=== PATIENT | male | born 1995 | race Caucasian/White ===

== ENCOUNTER 2025-02-26 15:52 | Emergency (ER) | payer OTHER, SELFPAY ==
[2025-02-26 16:13] VITALS: BP 154/89; PULSE 82; RESP 16; TEMP 36.4; O2SAT 99
--- NOTE | 2025-02-26 17:15 | ED_ITS ---
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 He states PD was there and they said they will get in contact with him if he needs rabies vaccine as the owners of the dog state he has had his shots. Patient with laceration to right forearm, bleeding controlled He is not sure when his last Tdap was GENERAL: Well-appearing, well-nourished, and in no acute distress. HEAD: Normocephalic, atraumatic. CHEST: Clear to auscultation. No respiratory distress. HEART: Regular rate and rhythm. NEURO: Alert and oriented x3. Patient screened in triage and initial orders placed. Additional care and disposition to be based upon diagnostic testing and treatment. 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 He stat es PD was there and they said they will get in contact with him if he needs rabies vaccine as the owners of the dog state he has had his shots. Patient with laceration to right forearm, bleeding controlled He is not sure when his last Tdap was GENERAL: Well-appearing, well-nourished, and in no acute distress. HEAD: Normocephalic, atraumatic. CHEST: Clear to auscultation. No respiratory distress. HEART: Regular rate and rhythm. NEURO: Alert and oriented x3. Patient screened in triage and initial orders placed. Additional care and disposition to be based upon diagnostic testing and treatment. <Rosita Dobson PA-C - Last Filed: 02/26/25 19:37> Source: patient <Rosita Dobson PA-C - Last Filed: 02/26/25 19:37> Mode of arrival: ambulatory <NERISSA Domingo Last Filed: 02/26/25 19:37> Limitations: no limitations <NERISSA Domingo Last Filed: 02/26/25 19:37> History of Present Illness HPI narrative: Agree with above HPI. Denies significant pain. <DINO Domingo - Last Filed: 02/26/25 19:37> Related Data Allergies/adverse reactions: Allergies Allergy/AdvReac Type Severity Reaction Status Date / Time No Known Allergies Allergy Verified 02/26/25 15:53 <Deborah Saldana, MEDICAL RECEPTIONIST ASSISTANT - Last Filed: 02/26/25 17:20> Review of Systems Review of Systems: All systems reviewed & are unremarkable except as noted in HPI. <Rosita Dobson PA-C - Last Filed: 02/26/25 19:37> All systems reviewed & are unremarkable except as noted in HPI and below <Rosita Dobson PA-C - Last Filed: 02/26/25 19:37> Exam Narrative: GENERAL: Well appearing, well-nourished, non-toxic, in no acute distress. HEAD: Normocephalic, atraumatic. RESPIRATORY: Airway patent, respirations nonlabored. CARDIOVASCULAR: Regular rate and rhythm. Radial pulses intact MUSCULOSKELETAL: Moves all extremities. No gross deformities. R forearm with 0 .5cm linear laceration to dorsal forearm, no active bleeding. 2 smaller puncture wounds to lateral edge of forearm w/o active bleeding. No obvious fb. Sensation intact. SKIN: Warm, dry, normal color. NEURO: A&O X3. Speech clear. PSYCHIATRIC: Appropriate mood and affect. Normal interaction. <NERISSA Domingo Last Filed: 02/26/25 19:37> Course Vital Signs Vital signs: Vital Signs Temperature 97.5 F L 02/26/25 16:13 Pulse Rate 82 02/26/25 16:13 Respiratory Rate 16 02/26/25 16:13 Blood Pressure 154/89 H 02/26/25 16:13 Pulse Oximetry 99 02/26/25 16:13 Oxygen Delivery Room Air 02/26/25 16:13 Temperature 97.5 F L 02/26/25 16:13 Pulse Rate 79 02/26/25 19:29 Respiratory Rate 20 02/26/25 19:29 Blood Pressure 143/85 H 02/26/25 19:29 Pulse Oximetry 98 02/26/25 19:29 Oxygen Delivery Room Air 02/26/25 16:13 <Deborah Saldana, MEDICAL RECEPTIONIST ASSISTANT - Last Filed: 02/26/25 17:20> Vital Signs Temperature 97.5 F L 02/26/25 16:13 Pulse Rate 82 02/26/25 16:13 Respiratory Rate 16 02/26/25 16:13 Blood Pressure 154/89 H 02/26/25 16:13 Pulse Oximetry 99 02/26/25 16:13 Oxygen Delivery Room Air 02/26/25 16:13 Temperature 97.5 F L 02/26/25 16:13 Pulse Rate 79 02/26/25 19:29 Respiratory Rate 20 02/26/25 19:29 Blood Pressure 143/85 H 02/26/25 19:29 Pulse Oximetry 98 02/26/25 19:29 Oxygen Delivery Room Air 02/26/25 16:13 <Rosita Dobson PA-C - Last Filed: 02/26/25 19:37> Procedures Laceration Laceration 1: Date: 02/26/25 <NERISSA Domingo Last Filed: 02/26/25 19:37> Time: 19:00 <NERISSA Domingo Last Filed: 02/26/25 19:37> Site: upper extremity <NERISSA Domingo Last Filed: 02/26/25 19:37> Side (If applicable): right (forearm) <NERISSA Domingo Last Filed: 02/26/25 19:37> Size (cm): 0.5 <NERISSA Domingo Last Filed: 02/26/25 19:37> Description: linear <NERISSA Domingo Last Filed: 02/26/25 19:37> Depth: simple, single layer <NERISSA Domingo Last Filed: 02/26/25 19:37> Local Anesthetic: lidocaine 1% <NERISSA Domingo Last Filed: 02/26/25 19:37> Amount of anesthesia used (mL): 2 <NERISSA Domingo Last Filed: 02/26/25 19:37> Pre-repair: wound explored, irrigated and irrigated extensively <NERISSA Domingo Last Filed: 02/26/25 19:37> ====== Skin Level ======: Skin layer closed with: nylon <NERISSA Domingo Last Filed: 02/26/25 19:37> Size (cm): 4-0 <NERISSA Domingo Last Filed: 02/26/25 19:37> Number of sutures: 1 <NERISSA Domingo Last Filed: 02/26/25 19:37> Technique: simple, interrupted <NERISSA Domingo Last Filed: 02/26/25 19:37> ====== Subcutaneous Layer ======: ====== Muscle Layer ======: ====== Tendon Layer ======: Medical Decision Making MDM Narrative Medical decision making narrative: Patient presented to ED status post dog bite to right forearm. Reports dog is up-to-date on vaccines, but he is verifying this. Report was filed with his work. Tetanus status was unknown, this was updated in the ED. Patient neurovascularly intact. In no acute distress. Patient with slightly larger/gaping laceration to right forearm. This was thoroughly irrigated and loosely approximated with 1 suture. Patient will be started on Augmentin. Given wound care instructions, strict return precautions. Patient in agreement with plan. D/C in stable condition. <NERISSA Domingo Last Filed: 02/26/25 19:37> Medical Records Medical records reviewed: Yes I reviewed the external patient's medical records. <NERISSA Domingo Last Filed: 02/26/25 19:37> Vital Signs Vital Signs: Vital Signs Temperature 97.5 F L 02/26/25 16:13 Pulse Rate 82 02/26/25 16:13 Respiratory Rate 16 02/26/25 16:13 Blood Pressure 154/89 H 02/26/25 16:13 Pulse Oximetry 99 02/26/25 16:13 Oxygen Delivery Room Air 02/26/25 16:13 Temperature 97.5 F L 02/26/25 16:13 Pulse Rate 79 02/26/25 19:29 Respiratory Rate 20 02/26/25 19:29 Blood Pressure 143/85 H 02/26/25 19:29 Pulse Oximetry 98 02/26/25 19:29 Oxygen Delivery Room Air 02/26/25 16:13 <Deborah Saldana, MEDICAL RECEPTIONIST ASSISTANT - Last Filed: 02/26/25 17:20> Vital Signs Temperature 97.5 F L 02/26/25 16:13 Pulse Rate 82 02/26/25 16:13 Respiratory Rate 16 02/26/25 16:13 Blood Pressure 154/89 H 02/26/25 16:13 Pulse Oximetry 99 02/26/25 16:13 Oxygen Delivery Room Air 02/26/25 16:13 Temperature 97.5 F L 02/26/25 16:13 Pulse Rate 79 02/26/25 19:29 Respiratory Rate 20 02/26/25 19:29 Blood Pressure 143/85 H 02/26/25 19:29 Pulse Oximetry 98 02/26/25 19:29 Oxygen Delivery Room Air 02/26/25 16:13 <Rosita Dobson PA-C - Last Filed: 02/26/25 19:37> Discharge Plan Discharge Clinical Impression: Dog bite, Laceration of right forearm <Deborah Flores February, MEDICAL RECEPTIONIST ASSISTANT - Last Filed: 02/26/25 17:20> Patient Disposition: Home <Deborah Saldana, MEDICAL RECEPTIONIST ASSISTANT - Last Filed: 02/26/25 17:20> Condition: Stable <Deborah Saldana, MEDICAL RECEPTIONIST ASSISTANT - Last Filed: 02/26/25 17:20> Instructions: Antibiotic Form, Animal Bite (ED), Care For Your Stitches (ED) <Deborah Saldana, MEDICAL RECEPTIONIST ASSISTANT - Last Filed: 02/26/25 17:20> Additional Instructions: Take antibiotics as prescribed. Recommend Tylenol and ibuprofen as needed for pain. Return to the ED or visit an urgent care or your PCP for follow-up and wound check/suture removal in 10 to 14 days. Keep the wound dry for 24 hours. You may remove the bandage after 24 hours and wash with simple soap and water, but do not scrub. Return to the ED if you experience uncontrolled bleeding, fever, chills, pus-like drainage, or redness/swelling/warmth surrounding the wound, as these could be signs of an infection. <Deborah Saldana MEDICAL RECEPTIONIST ASSISTANT - Last Filed: 02/26/25 17:20> Patient Language: Slovenian <Deborah Saldana MEDICAL RECEPTIONIST ASSISTANT - Last Filed: 02/26/25 17:20> Prescriptions: New amoxicillin-pot clavulanate 875-125 mg tablet 1 tablet PO Q12H 7 Days Qty: 14 0RF <Deborah Saldana MEDICAL RECEPTIONIST ASSISTANT - Last Filed: 02/26/25 17:20> Follow-up/Referrals: PHYSICIAN NOT ON STAFF,NONSTAFF [Non-Staff] - Ranjan Martinez MD [Physician] - (PRIMARY CARE) <Deborah Saldana APRN - Last Filed: 02/26/25 17:20> Time of Disposition: 19:09 <Deborah Saldana APRN - Last Filed: 02/26/25 17:20> 19:09 <Rosita Dobson PA-C - Last Filed: 02/26/25 19:37>
[2025-02-26] MEDS: TETANUS,DIPHTHERIA,AC PERTUSSIS ADULT (0.5 ML) BOOSTRIX IM (17:45)
--- OUTSIDE RECORDS SUMMARY | 2025-02-26 18:27 | XMS_ITS | Encounter Summary ---
Author Organization [facility] Address [address] [place] [address] Care Team Providers Care Manager Privacy Name Role Phone Unavailable Primary Care Provider Unavailabl e Encounter Details Date Type Department Care Team (Late st Contact Info) Description 08/22/2020 Lab Requisition [facility] - Laboratory [address] [place] [address] Derek Dwyer PA [address] [facility] [address] [place] [address] Social History Tobacco Use Types Packs/Day Years Used Date Smoking Tobacco: Never Assessed Sex and Gender Information Value Date Recorded Sex Assigned at Not on file Legal Sex Male 11:06 AM CDT Gender Identity Not on file Sexual Orientation Not on file COVID-19 Exposure Response Date Recorded In the last month, have you been in contact with someone who was confirmed or suspected to have Coronavirus / COVID-19? No / Unsure 08/22/2020 1:18 PM CONTRACT ASSOCIATE documented as of this encounter Plan of Treatment Not on file documented as of this encounter Procedures Procedure Name Priority Date/Time Associated Diagnosis Comments OCCUPATIONAL PROFILE W/REFLEX DBILI Routine 08/22/2020 10:50 AM CONTRACT ASSOCIATE URINALYSIS W/MICROSCOPIC NO CULTURE Routine 08/22/2020 10:50 AM CONTRACT ASSOCIATE SYPHILIS ANTIBODY CASCADING REFLEX Routine 08/22/2020 10:50 AM CONTRACT ASSOCIATE HIV-1 HIV-2 ANTIBODY + HIV P24 AG PANEL Routine 08/22/2020 10:50 AM CONTRACT ASSOCIATE RPR Routine 08/22/2020 10:50 AM CONTRACT ASSOCIATE CBC W AUTO DIFFERENTIAL Routine 08/22/2020 10:50 AM CONTRACT ASSOCIATE HEPATITIS B CORE ANTIBODY TOTAL Routine 08/22/2020 10:50 AM CONTRACT ASSOCIATE HEPATITIS B SURFACE ANTIGEN W RFLX CONFIRMATION Routine 08/22/2020 10:50 AM CONTRACT ASSOCIATE BILIRUBIN DIRECT Routine 08/22/2020 10:5 0 AM CONTRACT ASSOCIATE HEPATITIS C ANTIBODY Routine 08/22/2020 10:50 AM CONTRACT ASSOCIATE LIPID PROFILE Routine 08/22/2020 10:50 AM CONTRACT ASSOCIATE documented in this encounter Results * (ABNORMAL) BILIRUBIN DIRECT (08/22/2020 10:50 AM CONTRACT ASSOCIATE) Pathologist [facility] Bilirubin Direct 0.8(H) 0.0 - 0.5 mg/dL 08/22/2020 10:21 PM CONTRACT ASSOCIATE [facility] Blood BLOOD SPECIMEN / Unknown Venipuncture / Unknown 08/22/2020 10:50 AM CONTRACT ASSOCIATE 08/22/2020 9:14 PM CONTRACT ASSOCIATE [facility] - CHEMISTRY ORDERABLES F inal Result [facility] [address] * (ABNORMAL) URINALYSIS W/MICROSCOPIC NO CULTURE (08/22/2020 10:50 AM CONTRACT ASSOCIATE) Color UA Straw Straw, Yellow, Light Yellow, Dark Yellow 08/22/2020 9:39 PM CONTRACT ASSOCIATE [facility] Clarity UA Clear Clear 08/22/2020 9:39 PM CONTRACT ASSOCIATE [facility] Specific [place] UA 1.012 1.001 - 1.034 08/22/2020 9:39 PM CONTRACT ASSOCIATE [facility] pH UA 7.0 5.0 - 8.5 pH 08/22/2020 9:39 PM CONTRACT ASSOCIATE [facility] Glucose UA Negative Negative 08/22/2020 9:39 PM CONTRACT ASSOCIATE [facility] Ketone UA Negative Negative 08/22/2020 9:39 PM [facility] Blood UA Negative Negative 08/22/2020 9:39 PM [facility] Bilirubin UA Negative Negative 08/22/2020 9:39 PM [facility] Protein UA Negative Negative 08/22/2020 9:39 PM CONTRACT ASSOCIATE [facility] Leukocyte UA Negative Negative 08/22/2020 9:39 PM [facility] Nitrite UA Negative Negative 08/22/2020 9:39 PM [facility] Urobilinogen UA Negative Negative 0 9:39 PM [facility] RBC UA None None, 0-2 # /hpf 08/22/2020 9:39 PM [facility] WBC UA None None, 0-2 # /hpf 08/22/2020 9:39 PM [facility] Bacteria UA None None, Occasional 08/22/2020 9:39 PM [facility] Squamous Epithelial Cells None None, Occasional #/hpf 08/22/2020 9:39 PM [facility] Mucus UA Present(A) Absent 08/22/2020 9:39 PM [facility] Hyaline Casts None None, 0-1 # /lpf 08/22/2020 9:39 PM [facility] Granular Casts None 0-1, None # /lpf 08/22/2020 9:39 PM [facility] Urine URINE SPECIMEN OBTAINED BY CLEAN CATCH PROCEDURE / Unknown Collection / Unknown 08/22/2020 10:50 AM CONTRACT ASSOCIATE 08/22/2020 9:13 PM CONTRACT ASSOCIATE [facility] - URINALYSIS ORDERABLES Final Result [facility] [address] * HIV-1 HIV-2 ANTIBODY + HIV P24 AG PANEL (08/22/2020 10:50 AM CONTRACT ASSOCIATE) HIV1/2 Ab + P24 Ag Negative Negative 08/22/2020 10:11 PM [facility] Blood BLOOD SPECIMEN / Unknown Venipuncture / Unknown 08/22/2020 10:50 AM CONTRACT ASSOCIATE 08/22/2020 9:14 PM CONTRACT ASSOCIATE [facility] - CHEMISTRY ORDERABLES F inal Result Performing Organization Address City/[facility]/ZIP Co de Phone Number [facility] [address] * HEPATITIS C ANTIBODY (08/22/2020 10:50 AM CONTRACT ASSOCIATE) HCV Antibody Screen Negative Negative 08/22/2020 10:18 PM CONTRACT ASSOCIATE [facility] Hepatitis C Virus Index 0.10 0.00 - 0.99 08/22/2020 10:18 PM CONTRACT ASSOCIATE [facility] Blood BLOOD SPECIMEN / Unknown Venipuncture / Unknown 08/22/2020 10:50 AM CONTRACT ASSOCIATE 08/22/2020 9:14 PM CONTRACT ASSOCIATE [facility] - CHEMISTRY ORDERABLES F inal Result Performing Organization Address [facility] Co de Phone Number [facility] [address] * HEPATITIS B SURFACE ANTIGEN W RFLX CONFIRMATION (08/22/2020 10:50 AM CONTRACT ASSOCIATE) HBsAg Negative Negative 08/22/2020 10:15 PM CONTRACT ASSOCIATE [facility] Blood BLOOD SPECIMEN / Unknown Venipuncture / Unknown 08/22/2020 10:50 AM CONTRACT ASSOCIATE 08/22/2020 9:14 PM CONTRACT ASSOCIATE [facility] - CHEMISTRY ORDERABLES F inal Result Performing Organization Address City/[facility]/ZIP Co de Phone Number [facility] [address] * HEPATITIS B CORE ANTIBODY (08/22/2020 10:50 AM CONTRACT ASSOCIATE) Hepatitis B Core Virus Antibody Total Negative Negative 08/24/2020 8:56 PM CONTRACT ASSOCIATE [facility] ([facility]) Comment: INTERPRETIVE INFORMATION: Hepatitis B Core Ab (Total) This assay should not be used for blood donor screening, associated re-entry protocols, or for screening Human Cells, Tissues and Cellular and Tissue-Based Products (HCT/P). Performed by [employer], [address] [place] [id number] [email or web address], Symone Myers MD, Lab. Director Blood BLOOD SPECIMEN / Unknown Venipuncture / Unknown 08/22/2020 10:50 AM CONTRACT ASSOCIATE 08/22/2020 9:14 PM CONTRACT ASSOCIATE [facility] - CHEMISTRY ORDERABLES F inal Result [facility] ([facility]) [address] * LIPID PROFILE (08/22/2020 10:50 AM [facility]) Appearance Serum Clear Clear 08/22/20 20 10:02 PM [facility] Cholesterol 174 <200 mg/dL 08/22/2020 10:02 PM [facility] Triglycerides 77 <=150 mg/dL 08/22/2020 10:02 PM [facility] Comment:N-acetylcysteine adm inistration may falsely depress Triglyceride results and also affect calculations derived from that parameter. HDL Cholesterol 66 >=40 mg/dL 08/22/2020 10:02 PM [facility] Comment:N-acetylcysteine adm inistration may falsely depress HDL results and also affect calculations derived from that parameter. HDL % 37.9 % 08/22/2020 10:02 PM [facility] Chol HDL Ratio 2.6 08/22/2020 10:02 PM [facility] LDL/HDL Ratio 1.4 08/22/2020 10:02 PM [facility] VLDL Calculated 15 6 - 34 mg/dL 08/22/2020 10:02 PM [facility] LDL Calculated 93 70 - 130 mg/dL 08/22/2020 10:02 PM [facility] Blood BLOOD SPECIMEN / Unknown Venipuncture / Unknown 08/22/2020 10:50 AM CONTRACT ASSOCIATE 08/22/2020 9:14 PM [facility] Narrative [facility] - 08/22/2020 10:02 PM [facility] Lipid Profile Comment: NATIONAL CHOLESTEROL EDUCATION PROGRAM ADULT TREATMENT PANEL III (February 2001) RISK ASSESSMENT CATEGORIES FOR LIPIDS ANALYTE Desirable Above Borderline High Very Level Desirable High Risk Risk High Risk Cholestrol < 200 200-239 >= 240 Triglycerides < 150 150-199 200-499 >= 500 HDL >= 60 < 40 LDL < 100 100-129 130-159 160-189 >= 190 Chol/HDL > 6.0 LDL/HDL > 4.0 Units for all values are mg/dL Note: <70 mg/dL is the therapeutic LDL goal in high risk patients (updated 2004) Other risk factors for coronary heart disease include a family history of early coronary heart disease (CHD), premature menopause w/o estrogen replacement therapy, smoking, hypertension, obesity, diabetes, males over 40 years old, and females over 54 years old. [facility] - CHEMISTRY ORDERABLES F inal Result [facility] [address] * (ABNORMAL) OCCUPATIONAL PROFILE W/REFLEX DBILI (08/22/2020 10:50 AM CONTRACT ASSOCIATE) Protein Total 7.9 6.0 - 8.3 gm/dL 08/22/2020 10:04 PM [facility] Albumin 4.9 3.4 - 5.0 gm/dL 08/22/2020 10:04 PM [facility] Calcium 9.8 8.4 - 10.4 mg/dL 08/22/2020 10:04 PM [facility] Phosphorus 3.0 2.3 - 4.7 mg/dL 08/22/2020 10:04 PM [facility] Glucose 80 65 - 99 mg/dL 08/22/2020 10:04 PM [facility] Bilirubin Total 2.4(H) 0.2 - 1.2 mg/dL 08/22/2020 10:04 PM [facility] Alkaline Phosphatase 60 40 - 150 U/L 08/22/2020 10:04 PM [facility] LDH 209 125 - 220 U/L 08/22/2020 10:04 PM [facility] AST 29 5 - 34 U/L 08/22/2020 10:04 PM [facility] ALT 31 0 - 55 U/L 08/22/2020 10:04 PM [facility] BUN 12 7 - 18 mg/dL 08/22/2020 10:04 PM [facility] Creatinine 0.91 0.72 - 1.25 mg/dL 08/22/2020 10:04 PM [facility] BUN/Creatinine Ratio 13.2 7.0 - 25.0 08/22/2020 10:04 PM [facility] Uric Acid 4.9 3.5 - 7.2 mg/dL 08/22/2020 10:04 PM [facility] Comment:X-fumhnf-6-benzoquin one imine (NAPQI), a metabolite of acetaminophen, at very high levels may lead to falsely low results. D-ujkvdq-E-cysteine at therapeutically achieved concentrations may lead to falsely low results. Sodium 140 136 - 145 mmol/L 08/22/2020 10:04 PM [facility] Potassium 4.6 3.5 - 5.1 mmol/L 08/22/2020 10:04 PM [facility] Chloride 102 98 - 107 mmol/L 08/22/2020 10:04 PM [facility] CO2 25 22 - 29 mmol/L 08/22/2020 10:04 PM [facility] GGT 24 12 - 64 U/L 08/22/2020 10:04 PM [facility] Calcium Adjusted 9.08 8.4 - 10.4 mg/dL 08/22/2020 10:04 PM [facility] eGFR by MDRD >60 >60 mL/min/1. 73m2 08/22/2020 10:04 PM [facility] eGFR by MDRD >60 >60 mL/min/1. 73m2 08/22/2020 10:04 PM [facility] Blood BLOOD SPECIMEN / Unknown Venipuncture / Unknown 08/22/2020 10:50 AM CONTRACT ASSOCIATE 08/22/2020 9:14 PM [facility] Derek [facility] - CHEMISTRY ORDERABLES F inal Result [facility] [address] * (ABNORMAL) CBC WITH DIFFERENTIAL (08/22/2020 10:50 AM [facility]) [facility] WBC 6.8 3.7 - 11.6 x10E9/L 08/22/2020 9:26 PM [facility] RBC 5.53 4.20 - 5.70 x10E12/L 08/22/2020 9:26 PM [facility] Hemoglobin 16.7 13.0 - 17.1 gm/dL 08/22/2020 9:26 PM [facility] Hematocrit 49.4(H) 38.0 - 48.0 % 08/22/2020 9:26 PM [facility] MCV 89.3 80.0 - 96.0 fl 08/22/2020 9:26 PM [facility] MCH 30.2 28.0 - 34.0 pg 08/22/2020 9:26 PM [facility] MCHC 33.8 33.0 - 37.0 gm/dL 08/22/2020 9:26 PM [facility] RDW 12.5 11.3 - 14.8 % 08/22/2020 9:26 PM [facility] Platelet Count 359 150 - 440 x10E9/L 08/22/2020 9:26 PM [facility] MPV 10.8 9.3 - 12.2 fl 08/22/2020 9:26 PM [facility] Neutrophils % 63.4 41.0 - 79.0 % 08/22/2020 9:26 PM [facility] Lymphocytes % 26.7 13.0 - 47.0 % 08/22/2020 9:26 PM [facility] Monocytes % 7.6 0.0 - 10.0 % 08/22/2020 9:26 PM [facility] Eosinophils % 1.3 0.0 - 7.0 % 08/22/2020 9:26 PM [facility] Basophils % 0.6 0.0 - 1.0 % 08/22/2020 9:26 PM [facility] Neutrophil Absolute 4.31 1.8 - 7.7 x10E9/L 08/22/2020 9:26 PM [facility] Lymphocytes Absolute 1.82 1.0 - 4.8 x10E9/L 08/22/2020 9:26 PM [facility] Monocytes Absolute 0.52 0.0 - 0.8 x10E9/L 08/22/2020 9:26 PM [facility] Eosinophils Absolute 0.09 0.0 - 0.5 x10E9/L 08/22/2020 9:26 PM [facility] Basophils Absolute 0.04 0.0 - 0.2 x10E9/L 08/22/2020 9:26 PM [facility] Blood BLOOD SPECIMEN / Unknown Venipuncture / Unknown 08/22/2020 10:50 AM CONTRACT ASSOCIATE 08/22/2020 9:14 PM [facility] Derek [facility] - HEMATOLOGY ORDERABLES Final Result [facility] [address] * RPR (08/22/2020 10:50 AM CONTRACT ASSOCIATE) RPR Nonreactive Nonreactive 08/23/2020 7:12 AM CONTRACT ASSOCIATE [facility] Blood BLOOD SPECIMEN / Unknown Venipuncture / Unknown 08/22/2020 10:50 AM CONTRACT ASSOCIATE 08/22/2020 9:14 PM CONTRACT ASSOCIATE [facility] - CHEMISTRY ORDERABLES F inal Result [facility] [address] documented in this encounter Visit Diagnoses Not on filedocumented in this encounter
--- OUTSIDE RECORDS SUMMARY | 2025-02-26 18:27 | XMS_ITS | Clinical Summary ---
Author Organization [facility] [place] [address] Address [facility] [place] [address] Care Team Providers Care Haulage Engine Operator Name Role Phone Ji Grande NP Primary Care Provider [phone] Allergies No known active allergies Medications famotidine (PEPCID) 20 mg tabletIndications :Abdominal pain Take 1 tablet (20 mg total) by mouth 2 (two) times a day 60 tablet 11 12/22/2021 Active albuterol HFA (PROVENTIL HFA,VENTOLIN HFA,PROAIR HFA) 90 mcg/actuation inhalerIndication s:Mild intermittent asthma without complication Inhale 2 puffs 3 (three) times a day 2 each 1 12/29/2021 Active Active Problems Problem Noted Date Diagnosed Date Seasonal allergic rhinitis due to pollen 022 Assessment & Plan (01/08/2022 10:27 PM CDT): States is using OTC meds for allergy problems States drainage he has had is clear in color and is thin in consistency Voices no other problems. Generalized abdominal pain 12/23/2021 Assessment & Plan (12/23/2021 8:36 PM DELI ASSOCIATE): [place] diet. Eat 6 small meals. Drink green, brown tea, WAYLON AIDE,White soda, room temperature, , wtaer, some Pedilyte for adults. No grease, milk, spice. Etc. Pepcid AC 20mg one daily. Keflex 500mg one tid for 10 days. Gastroesophageal reflux disease without esophagi tis 12/23/2021 Assessment & Plan (12/23/2021 8:53 PM DELI ASSOCIATE): Continue with bland diet No alcohol, or citric foods.,other carbonated be.verages BRAT diet could also be helpful. If not improving Will refer to specialist. Acute gastritis without hemorrhage 12/23/2021 Assessment & Plan (12/23/2021 9:12 PM DELI ASSOCIATE): Continue with the plan of care. Not to continue watch stooling for blood or changes in color , or consistency. Continue with medications and plan of treatment.- Reviewed plan of care with patient states understands. Immunizations Immunization Administration Dates Next Due Influenza, Unspecified 12/29/2021(Deferr ed: Patient Refused),12/22/2021(Deferred: Patient Refused),12/22/2020(Deferred: Patient Refused),08/28/2020(Deferred: Patient Refused) Tdap 04/13/2020 Medical History Medical History Date Comments Hypertension Family History Medical History Relation Name Comments No Known Problems Brother No Known Problems Father Autoimmune disease Mother No Known Problems Sister Relation Name Status Comments Brother Alive Father Alive Mother Alive Sister Alive Social History Tobacco Use Types Packs/Day Years Used Date Smoking Tobacco: Never Smokeless Tobacco: Never PHQ-2 Answer Date Recorded PHQ-2 Total Score (If total score is 3 or more points, staff should administer the PHQ-9) 0 12/29/2021 Personal Safety Answer Date Recorded Getting School Help Needed Not on file 12/14 Sex and Gender Information Value Date Recorded Sex Assigned at Not on file Legal Sex Male 12:54 PM DELI ASSOCIATE Gender Identity Not on file Sexual Orientation Not on file Obstetrics History Last Filed Vital Signs Vital Sign Reading Time Taken Comments Blood Pressure 112/78 12/29/2021 8:37 AM CDT Pulse 88 12/29/2021 8:37 AM CDT Temperature 36.6 C (97.8 F) 12/29/2021 8:37 AM CDT Respiratory Rate 16 12/29/2021 8:37 AM CDT Oxygen Saturation 97% 12/29/2021 8:37 AM CDT Inhaled Oxygen Concentration - - Weight 87.5 kg (192 lb 14.4 oz) 12/29/2021 8:37 AM CDT Height 176 cm (5' 9.29 ) 12/29/2021 8:37 AM CDT Body Mass Index 28.25 12/29/2021 8:37 AM CDT Plan of Treatment Not on file Insurance [employer] [place]F [place] Member Subscriber Plan / Payer (Ef fective 2021-Present) Name:Ti Guardado Relation to Subscriber:Self Name:Ti Guardado Payer ID:[id number] ([facility]) Type:HEALTHCARE/EXCHANGE Address: [place] [id number] Care Teams Haulage Engine Operator Relationship Specialty Start Date End Date Ji Grande NP [address] [facility] [address] [place] [address] PCP - General Nurse Practitioner 12/22/21
--- OUTSIDE RECORDS SUMMARY | 2025-02-26 18:27 | XMS_ITS | Referral Summary ---
Author Organization [facility] [place] [address] Address [facility] [place] [address] Care Team Providers Care Machine Lacer Name Role Phone Ji Grande NP Primary Care Provider [phone] Allergies No known active allergies Medications famotidine [...] 12/23/2021 Assessment & Plan (12/23/2021 8:36 PM VISUAL EFFECTS EDITOR): [place] diet. Eat 6 small meals. Drink green, brown tea, WAYLON AIDE,White soda, room temperature, , wtaer, some Pedilyte for adults. No grease, milk, spice. Etc. Pepcid AC 20mg one daily. Keflex 500mg one tid for 10 days. Gastroesophageal reflux disease without esophagi tis 12/23/2021 Assessment & Plan (12/23/2021 8:53 PM VISUAL EFFECTS EDITOR): Continue with bland diet No alcohol, or citric foods.,other carbonated be.verages BRAT diet could also be helpful. If not improving Will refer to specialist. Acute gastritis without hemorrhage 12/23/2021 Assessment & Plan (12/23/2021 9:12 PM VISUAL EFFECTS EDITOR): Continue with the plan of care. Not to continue watch stooling for blood or changes in color , or consistency. Continue with medications and plan of treatment.- Reviewed plan of care with patient states understands. Immunizations Immunization Administration Dates Next Due Influenza, Unspecified 12/29/2021(Deferr ed: Patient Refused),12/22/2021(Deferred: Patient Refused),12/22/2020(Deferred: Patient Refused),08/28/2020(Deferred: Patient Refused) Tdap 04/13/2020 Social History Tobacco Use Types Packs/Day Years [...] on file Legal Sex Male 12:54 PM VISUAL EFFECTS EDITOR Gender Identity Not on file Sexual Orientation Not on file Last Filed Vital Signs Vital Sign Reading [...] file Insurance [place] Care Teams Machine Lacer Relationship Specialty Start Date End Date Ji Grande NP [facility] [address] [place] [address] PCP - General Nurse Practitioner 12/22/21
--- OUTSIDE RECORDS SUMMARY | 2025-02-26 18:27 | XMS_ITS | Continuity of Care Document ---
Author Organization [facility] Address [address] [place] [address] Phone Care Team Providers Care Fire Fighter [employer] Name Role Phone CONV, [facility] Unavailable Unavailable Advance Directives Directive Yes / No Effective Date File Name No Information Encounters Encounter Description Practice Location Reason(s) For Visit Diagnoses Date Provider Providers Copied on Encounter [facility], [address] [place] [address], [facility], tel:[phone] Z [facility] CONV No Information CONV [facility]. [address] [place] [address], [facility], . Family History Family Member Type Diagnosis Age At Onset No Information Immunizations Vaccine Date Status Comments ORAL POLIO administered Source: New Imm unization Record DPT/HIB COMBINATION administered Source: New Immunization Record ORAL POLIO administered Source: New Imm unization Record DPT/HIB COMBINATION administered Source: New Immunization Record HEP B VACCINE PED/ADOL administered Sourc e: New Immunization Record HEP B VACCINE PED/ADOL administered Sourc e: New Immunization Record Payers Payer name Insurance type Covered republican ID Authoriza tion(s) No Information Social History Type Description Quantity Date Captured Comments Sex Male Smoking Status No Information Chief Complaint And Reason For Visit No Information History Of Present Illness Encounter Date Complaint History Of Prese nt Illness No Information Instructions Date Instruction Additional Infor mation No Information Assessments Type Assessment Date No Information Patient Care Teams Name Effective Dates (start - stop) Status Members No Information
--- OUTSIDE RECORDS SUMMARY | 2025-02-26 18:27 | XMS_ITS | Clinical Summary ---
Author Organization [facility] Address [address] [place] [address] Care Team Providers Care Claims Adjuster Crop Name Role Phone Unavailable Primary Care Provider Unavailabl e Source Comments [facility],non-owned Affiliates and Associated Physician Practices is amultiple site organization consisting of ambulatory clinics and hospital sitesin [place], [place]. This disclosure is being madepursuant to the Care Everywhere program and may not contain all information available regarding this patient. Last updated 18.[facility] [employer] Social History Tobacco Use Types Packs/Day Years Used Date Smoking Tobacco: Never Assessed Sex and Gender Information Value Date Recorded Sex Assigned at Not on file Legal Sex Male 11:06 AM CDT Gender Identity Not on file Sexual Orientation Not on file Plan of Treatment Health Maintenance Due Date Last Done Comments DTAP/TDAP/TD VACCINES (1 - Tdap) 2013 HEPATITIS B VACCINE (1 of 3 - 19+ 3-dose series) 2013 COVID-19 VACCINE ( - 2023-2 5 season) 2024 DEPRESSION SCREENING 10/14/2024 INFLUENZA VACCINE (Season Ended) 2025 ZOSTER VACCINE (1 of 2) 2044 HEPATITIS C SCREENING Completed 08/22/2020 HIV SCREENING Completed 08/22/2020 HIB VACCINE Aged Out No longer eligi ble based on patient's age to complete this topic HPV VACCINE Aged Out No longer eligi ble based on patient's age to complete this topic MENINGOCOCCAL (Group B) VACC INE SHARED DECISION-MAKING Aged Out No longer eligibl e based on patient's age to complete this topic MENINGOCOCCAL GROUPS A/C/Y/W VACCINE Aged Out No longer eligible b ased on patient's age to complete this topic PNEUMOCOCCAL VACCINE Aged Out No long er eligible based on patient's age to complete this topic Procedures Procedure Name Priority Date/Time Associated Diagnosis Comments HEPATITIS C ANTIBODY Routine 08/22/2020 10:50 AM TIRE LAYER HIV-1 HIV-2 ANTIBODY + HIV P24 AG PANEL Routine 08/22/2020 10:50 AM TIRE LAYER from Last 3 Months or Most Recently Relevant to Health Maintenance Results * HIV-1 HIV-2 ANTIBODY + HIV P24 AG PANEL (08/22/2020 10:50 AM TIRE LAYER) HIV1/2 Ab + P24 Ag Negative Negative 08/22/2020 10:11 PM TIRE LAYER [facility] Blood BLOOD SPECIMEN / Unknown Venipuncture / Unknown 08/22/2020 10:50 AM TIRE LAYER 08/22/2020 9:14 PM TIRE LAYER [facility] - CHEMISTRY ORDERABLES F inal Result [facility] [address] * HEPATITIS C ANTIBODY (08/22/2020 10:50 AM TIRE LAYER) HCV Antibody Screen Negative Negative 08/22/2020 10:18 PM TIRE LAYER [facility] Hepatitis C Virus Index 0.10 0.00 - 0.99 08/22/2020 10:18 PM TIRE LAYER [facility] Blood BLOOD SPECIMEN / Unknown Venipuncture / Unknown 08/22/2020 10:50 AM TIRE LAYER 08/22/2020 9:14 PM TIRE LAYER [facility] - CHEMISTRY ORDERABLES F inal Result [facility] [address] from Last 3 Months or Most Recently Relevant to Health Maintenance
--- OUTSIDE RECORDS SUMMARY | 2025-02-26 18:27 | XMS_ITS | Clinical Summary ---
Author Organization [facility] [employer] [place] Address [address] [place] [address] Care Team Providers Care Special Education Instructor Name Role Phone Unavailable Primary Care Provider Unavailabl e Allergies No known active allergies Medications albuterol HFA 90 mcg inhalerIndication s:Mild intermittent reactive airway disease without complication Take 2 Puffs by inhalation every 6 hours as needed for Shortness of Breath. 18 Gram 1 0 Active Active Problems No known active problems Immunizations Immunization Administration Dates Next Due (ADACEL/BOOSTRIX)(10 YR UP) TDAP VACCINE, 0.5ML, IM 04/13/2020 Family History Medical History Relation Name Comments No Known Problems Brother No Known Problems Father Brain Cancer Maternal Grandfather No Known Problems Maternal Grandmother No Known Problems Mother Other Paternal Grandfather Other Paternal Grandmother No Known Problems Sister Relation Name Status Comments Brother Alive Father Alive Maternal Grandfather Maternal Grandmother Alive Mother Alive Paternal Grandfather Other Paternal Grandmother Other Sister Alive Social History Tobacco Use Types Packs/Day Years Used Date Smoking Tobacco: Never Smokeless Tobacco: Never Alcohol Use Standard Drinks/Week Comments Yes 0 (1 standard drink = 0.6 oz pur e alcohol) Sex and Gender Information Value Date Recorded Sex Assigned at Not on file Legal Sex Male 8:38 AM CDT Gender Identity Not on file Sexual Orientation Not on file Last Filed Vital Signs Vital Sign Reading Time Taken Comments Blood Pressure 124/72 04/13/2020 7:45 AM CDT Pulse 92 04/13/2020 7:45 AM CDT Temperature 36.3 C (97.3 F) 04/13/2020 7:45 AM CDT Respiratory Rate 18 04/13/2020 7:45 AM CDT Oxygen Saturation 98% 04/13/2020 7:45 AM CDT Inhaled Oxygen Concentration - - Weight 77.1 kg (170 lb) 04/13/2020 7:45 AM CDT Height 175.3 cm (5' 9 ) 04/13/2020 7:45 AM CDT Body Mass Index 25.1 04/13/2020 7:45 AM CDT Plan of Treatment Health Maintenance Due Date Last Done Comments HEPATITIS B VACCINES (1 of 3 - 19+ 3-dose series) 2013 INFLUENZA VACCINE (#1) 2024 DTAP/TDAP/TD VACCINES (2 - T d or Tdap) 04/13/2030 04/13/2020 HPV VACCINES Aged Out No longer eligi ble based on patient's age to complete this topic
[2025-02-26] MEDS: LIDOCAINE 1% LOCAL INJ 20 ML VIAL 5 ML INFILTRATE (18:41)
[2025-02-26] MEDS: AMOXICILLIN/CLAVULANATE K 875-125 MG TAB 1 TABLET PO (18:42)
[2025-02-26 19:29] VITALS: BP 143/85; PULSE 79; RESP 20; O2SAT 98
== END 2025-02-26 19:31 | disposition home or self-care (01) ==
PROVIDERS: Emergency Provider Physician Assistant
DX: S51.811A Laceration without foreign body of right forearm, initial encounter (principal); Z23 Encounter for immunization; W54.0XXA Bitten by dog, initial encounter
CPT/HCPCS: 12001; 90471; 90715; 99283; A9270; J2003

== ENCOUNTER 2025-03-05 16:04 | Emergency (ER) | payer OTHER, SELFPAY ==
[2025-03-05 16:06] VITALS: BP 138/89; PULSE 83; RESP 20; TEMP 36.6; O2SAT 100
--- OUTSIDE RECORDS SUMMARY | 2025-03-05 16:06 | XMS_ITS | Referral Summary ---
Author Organization [facility] [address] Address [facility] [place] [address] Care Team Providers Care Sports Lawyer Name Role Phone Ji Grande NP Primary Care Provider [phone] Allergies No known active allergies Medications famotidine [...] 12/23/2021 Assessment & Plan (12/23/2021 8:36 PM GILL BOX TENDER): [place] diet. Eat 6 small meals. Drink green, brown tea, WAYLON AIDE,White soda, room temperature, , wtaer, some Pedilyte for adults. No grease, milk, spice. Etc. Pepcid AC 20mg one daily. Keflex 500mg one tid for 10 days. Gastroesophageal reflux disease without esophagi tis 12/23/2021 Assessment & Plan (12/23/2021 8:53 PM GILL BOX TENDER): Continue with bland diet No alcohol, or citric foods.,other carbonated be.verages BRAT diet could also be helpful. If not improving Will refer to specialist. Acute gastritis without hemorrhage 12/23/2021 Assessment & Plan (12/23/2021 9:12 PM GILL BOX TENDER): Continue with the plan of care. Not [...] on file Legal Sex Male 12:54 PM GILL BOX TENDER Gender Identity Not on file Sexual Orientation [...] 8:37 AM CDT Height 176 cm (5' 9.29) 12/29/2021 8:37 AM CDT Body Mass Index 28.25 12/29/2021 8:37 AM CDT Plan of Treatment Not on file Insurance [employer] [place]F PPO [place] Care Teams Sports Lawyer Relationship Specialty Start Date End Date Ji Grande NP [facility] [facility] [address] [place] [address] PCP - General Nurse Practitioner 12/22/21
--- OUTSIDE RECORDS SUMMARY | 2025-03-05 16:06 | XMS_ITS | Encounter Summary ---
Author Organization [facility] Address [address] [place] [address] Care Team Providers Care Clinical Supervisor Name Role Phone Unavailable Primary Care Provider Unavailabl e Encounter Details Date Type Department Care Team (Late st Contact Info) Description 08/22/2020 Lab Requisition [facility] - Laboratory [address] [place] [address] Derek Dwyer PA [address] [facility] [address] [place] [address] Social History Tobacco Use Types Packs/Day Years [...] COVID-19? No / Unsure 08/22/2020 1:18 PM BAKERY ASSISTANT documented as of this encounter Plan of Treatment Not on file documented as of this encounter Procedures Procedure Name Priority Date/Time Associated Diagnosis Comments OCCUPATIONAL PROFILE W/REFLEX DBILI Routine 08/22/2020 10:50 AM BAKERY ASSISTANT URINALYSIS W/MICROSCOPIC NO CULTURE Routine 08/22/2020 10:50 AM BAKERY ASSISTANT SYPHILIS ANTIBODY CASCADING REFLEX Routine 08/22/2020 10:50 AM BAKERY ASSISTANT HIV-1 HIV-2 ANTIBODY + HIV P24 AG PANEL Routine 08/22/2020 10:50 AM BAKERY ASSISTANT RPR Routine 08/22/2020 10:50 AM BAKERY ASSISTANT CBC W AUTO DIFFERENTIAL Routine 08/22/2020 10:50 AM BAKERY ASSISTANT HEPATITIS B CORE ANTIBODY TOTAL Routine 08/22/2020 10:50 AM BAKERY ASSISTANT HEPATITIS B SURFACE ANTIGEN W RFLX CONFIRMATION Routine 08/22/2020 10:50 AM BAKERY ASSISTANT BILIRUBIN DIRECT Routine 08/22/2020 10:5 0 AM BAKERY ASSISTANT HEPATITIS C ANTIBODY Routine 08/22/2020 10:50 AM BAKERY ASSISTANT LIPID PROFILE Routine 08/22/2020 10:50 AM BAKERY ASSISTANT documented in this encounter Results * (ABNORMAL) BILIRUBIN DIRECT (08/22/2020 10:50 AM BAKERY ASSISTANT) Pathologist [facility] Bilirubin Direct 0.8(H) 0.0 - 0.5 mg/dL 08/22/2020 10:21 PM BAKERY ASSISTANT [facility] Blood BLOOD SPECIMEN / Unknown Venipuncture / Unknown 08/22/2020 10:50 AM BAKERY ASSISTANT 08/22/2020 9:14 PM BAKERY ASSISTANT [facility] - CHEMISTRY ORDERABLES F inal Result [facility] [address] * (ABNORMAL) URINALYSIS W/MICROSCOPIC NO CULTURE (08/22/2020 10:50 AM BAKERY ASSISTANT) Color UA Straw Straw, Yellow, Light Yellow, Dark Yellow 08/22/2020 9:39 PM BAKERY ASSISTANT [facility] Clarity UA Clear Clear 08/22/2020 9:39 PM BAKERY ASSISTANT [facility] Specific Millsap UA 1.012 1.001 - 1.034 08/22/2020 9:39 PM BAKERY ASSISTANT [facility] pH UA 7.0 5.0 - 8.5 pH 08/22/2020 9:39 PM BAKERY ASSISTANT [facility] Glucose UA Negative Negative 08/22/2020 9:39 PM BAKERY ASSISTANT [facility] Ketone UA Negative Negative 08/22/2020 9:39 PM [facility] Blood UA Negative Negative 08/22/2020 9:39 PM [facility] Bilirubin UA Negative Negative 08/22/2020 9:39 PM [facility] Protein UA Negative Negative 08/22/2020 9:39 PM BAKERY ASSISTANT [facility] Leukocyte UA Negative Negative 08/22/2020 9:39 PM [facility] Nitrite UA Negative Negative 08/22/2020 9:39 PM [facility] Urobilinogen UA Negative Negative 0 9:39 PM [facility] RBC UA None None, 0-2 # /hpf 08/22/2020 9:39 PM [facility] WBC UA None None, 0-2 # /hpf 08/22/2020 9:39 PM [facility] Bacteria UA None None, Occasional 08/22/2020 9:39 PM [facility] Squamous Epithelial Cells None None, Occasional #/hpf 08/22/2020 9:39 PM [facility] Mucus UA Present(A) Absent 08/22/2020 9:39 PM [facility] Hyaline Casts None None, 0-1 # /lpf 08/22/2020 9:39 PM [facility] Granular Casts None 0-1, None # /lpf 08/22/2020 9:39 PM [facility] Urine URINE SPECIMEN OBTAINED BY CLEAN CATCH PROCEDURE / Unknown Collection / Unknown 08/22/2020 10:50 AM BAKERY ASSISTANT 08/22/2020 9:13 PM BAKERY ASSISTANT [facility] - URINALYSIS ORDERABLES Final Result [facility] [address] * HIV-1 HIV-2 ANTIBODY + HIV P24 AG PANEL (08/22/2020 10:50 AM BAKERY ASSISTANT) HIV1/2 Ab + P24 Ag Negative Negative 08/22/2020 10:11 PM [facility] Blood BLOOD SPECIMEN / Unknown Venipuncture / Unknown 08/22/2020 10:50 AM BAKERY ASSISTANT 08/22/2020 9:14 PM BAKERY ASSISTANT [facility] - CHEMISTRY ORDERABLES F inal Result Performing Organization Address City/[facility]/ZIP Co de Phone Number [facility] [address] * HEPATITIS C ANTIBODY (08/22/2020 10:50 AM BAKERY ASSISTANT) HCV Antibody Screen Negative Negative 08/22/2020 10:18 PM BAKERY ASSISTANT [facility] Hepatitis C Virus Index 0.10 0.00 - 0.99 08/22/2020 10:18 PM BAKERY ASSISTANT [facility] Blood BLOOD SPECIMEN / Unknown Venipuncture / Unknown 08/22/2020 10:50 AM BAKERY ASSISTANT 08/22/2020 9:14 PM BAKERY ASSISTANT [facility] - CHEMISTRY ORDERABLES F inal Result Performing Organization Address [facility] Co de Phone Number [facility] [address] * HEPATITIS B SURFACE ANTIGEN W RFLX CONFIRMATION (08/22/2020 10:50 AM BAKERY ASSISTANT) HBsAg Negative Negative 08/22/2020 10:15 PM BAKERY ASSISTANT [facility] Blood BLOOD SPECIMEN / Unknown Venipuncture / Unknown 08/22/2020 10:50 AM BAKERY ASSISTANT 08/22/2020 9:14 PM BAKERY ASSISTANT [facility] - CHEMISTRY ORDERABLES F inal Result Performing Organization Address City/[facility]/ZIP Co de Phone Number [facility] [address] * HEPATITIS B CORE ANTIBODY (08/22/2020 10:50 AM BAKERY ASSISTANT) Hepatitis B Core Virus Antibody Total Negative Negative 08/24/2020 8:56 PM BAKERY ASSISTANT [facility] ([facility]) Comment: INTERPRETIVE INFORMATION: Hepatitis B Core Ab (Total) This assay should not be used for blood donor screening, associated re-entry protocols, or for screening Human Cells, Tissues and Cellular and Tissue-Based Products (HCT/P). Performed by [employer], [address] [place] [id number] [email or web address], Symone Myers MD, Lab. Director Blood BLOOD SPECIMEN / Unknown Venipuncture / Unknown 08/22/2020 10:50 AM BAKERY ASSISTANT 08/22/2020 9:14 PM BAKERY ASSISTANT [facility] - CHEMISTRY ORDERABLES F inal Result [facility] ([facility]) [address] * LIPID PROFILE (08/22/2020 10:50 AM [facility]) Appearance Serum Clear Clear 08/22/20 20 10:02 PM [facility] Cholesterol 174 <200 mg/dL 08/22/2020 10:02 PM [facility] Triglycerides 77 <=150 mg/dL 08/22/2020 10:02 PM [facility] Comment:N-acetylcysteine adm inistration may falsely depress Triglyceride results and also affect calculations derived from that parameter. HDL Cholesterol 66 >=40 mg/dL 08/22/2020 10:02 PM [facility] Comment:N-acetylcysteine adm inistration may falsely depress HDL results and also affect calculations derived from that parameter. HDL % 37.9 % 08/22/2020 10:02 PM [facility] Chol HDL Ratio 2.6 08/22/2020 10:02 PM [facility] LDL/HDL Ratio 1.4 08/22/2020 10:02 PM [facility] VLDL Calculated 15 6 - 34 mg/dL 08/22/2020 10:02 PM [facility] LDL Calculated 93 70 - 130 mg/dL 08/22/2020 10:02 PM [facility] Blood BLOOD SPECIMEN / Unknown Venipuncture / Unknown 08/22/2020 10:50 AM BAKERY ASSISTANT 08/22/2020 9:14 PM [facility] Narrative [facility] - 08/22/2020 10:02 PM [facility] Lipid Profile Comment: NATIONAL CHOLESTEROL EDUCATION PROGRAM [...] LAB - CHEMISTRY ORDERABLES F inal Result [facility] [address] * (ABNORMAL) OCCUPATIONAL PROFILE W/REFLEX DBILI (08/22/2020 10:50 AM BAKERY ASSISTANT) Protein Total 7.9 6.0 - 8.3 gm/dL 08/22/2020 10:04 PM [facility] Albumin 4.9 3.4 - 5.0 gm/dL 08/22/2020 10:04 PM [facility] Calcium 9.8 8.4 - 10.4 mg/dL 08/22/2020 10:04 PM [facility] Phosphorus 3.0 2.3 - 4.7 mg/dL 08/22/2020 10:04 PM [facility] Glucose 80 65 - 99 mg/dL 08/22/2020 10:04 PM [facility] Bilirubin Total 2.4(H) 0.2 - 1.2 mg/dL 08/22/2020 10:04 PM [facility] Alkaline Phosphatase 60 40 - 150 U/L 08/22/2020 10:04 PM [facility] LDH 209 125 - 220 U/L 08/22/2020 10:04 PM [facility] AST 29 5 - 34 U/L 08/22/2020 10:04 PM [facility] ALT 31 0 - 55 U/L 08/22/2020 10:04 PM [facility] BUN 12 7 - 18 mg/dL 08/22/2020 10:04 PM [facility] Creatinine 0.91 0.72 - 1.25 mg/dL 08/22/2020 10:04 PM [facility] BUN/Creatinine Ratio 13.2 7.0 - 25.0 08/22/2020 10:04 PM [facility] Uric Acid 4.9 3.5 - 7.2 mg/dL 08/22/2020 10:04 PM [facility] Comment:A-astmfr-4-benzoquin one imine (NAPQI), a metabolite of acetaminophen, at very high levels may lead to falsely low results. L-getmwp-B-cysteine at therapeutically achieved concentrations may lead to falsely low results. Sodium 140 136 - 145 mmol/L 08/22/2020 10:04 PM [facility] Potassium 4.6 3.5 - 5.1 mmol/L 08/22/2020 10:04 PM [facility] Chloride 102 98 - 107 mmol/L 08/22/2020 10:04 PM [facility] CO2 25 22 - 29 mmol/L 08/22/2020 10:04 PM [facility] GGT 24 12 - 64 U/L 08/22/2020 10:04 PM [facility] Calcium Adjusted 9.08 8.4 - 10.4 mg/dL 08/22/2020 10:04 PM [facility] eGFR by MDRD >60 >60 mL/min/1. 73m2 08/22/2020 10:04 PM [facility] eGFR by MDRD >60 >60 mL/min/1. 73m2 08/22/2020 10:04 PM [facility] Blood BLOOD SPECIMEN / Unknown Venipuncture / Unknown 08/22/2020 10:50 AM BAKERY ASSISTANT 08/22/2020 9:14 PM [facility] Derek [facility] - CHEMISTRY ORDERABLES F inal Result [facility] [address] * (ABNORMAL) CBC WITH DIFFERENTIAL (08/22/2020 10:50 AM [facility]) [facility] WBC 6.8 3.7 - 11.6 x10E9/L 08/22/2020 9:26 PM [facility] RBC 5.53 4.20 - 5.70 x10E12/L 08/22/2020 9:26 PM [facility] Hemoglobin 16.7 13.0 - 17.1 gm/dL 08/22/2020 9:26 PM [facility] Hematocrit 49.4(H) 38.0 - 48.0 % 08/22/2020 9:26 PM [facility] MCV 89.3 80.0 - 96.0 fl 08/22/2020 9:26 PM [facility] MCH 30.2 28.0 - 34.0 pg 08/22/2020 9:26 PM [facility] MCHC 33.8 33.0 - 37.0 gm/dL 08/22/2020 9:26 PM [facility] RDW 12.5 11.3 - 14.8 % 08/22/2020 9:26 PM [facility] Platelet Count 359 150 - 440 x10E9/L 08/22/2020 9:26 PM [facility] MPV 10.8 9.3 - 12.2 fl 08/22/2020 9:26 PM [facility] Neutrophils % 63.4 41.0 - 79.0 % 08/22/2020 9:26 PM [facility] Lymphocytes % 26.7 13.0 - 47.0 % 08/22/2020 9:26 PM [facility] Monocytes % 7.6 0.0 - 10.0 % 08/22/2020 9:26 PM [facility] Eosinophils % 1.3 0.0 - 7.0 % 08/22/2020 9:26 PM [facility] Basophils % 0.6 0.0 - 1.0 % 08/22/2020 9:26 PM [facility] Neutrophil Absolute 4.31 1.8 - 7.7 x10E9/L 08/22/2020 9:26 PM [facility] Lymphocytes Absolute 1.82 1.0 - 4.8 x10E9/L 08/22/2020 9:26 PM [facility] Monocytes Absolute 0.52 0.0 - 0.8 x10E9/L 08/22/2020 9:26 PM [facility] Eosinophils Absolute 0.09 0.0 - 0.5 x10E9/L 08/22/2020 9:26 PM [facility] Basophils Absolute 0.04 0.0 - 0.2 x10E9/L 08/22/2020 9:26 PM [facility] Blood BLOOD SPECIMEN / Unknown Venipuncture / Unknown 08/22/2020 10:50 AM BAKERY ASSISTANT 08/22/2020 9:14 PM [facility] Dreek [facility] - HEMATOLOGY ORDERABLES Final Result [facility] [address] * RPR (08/22/2020 10:50 AM BAKERY ASSISTANT) RPR Nonreactive Nonreactive 08/23/2020 7:12 AM BAKERY ASSISTANT [facility] Blood BLOOD SPECIMEN / Unknown Venipuncture / Unknown 08/22/2020 10:50 AM BAKERY ASSISTANT 08/22/2020 9:14 PM BAKERY ASSISTANT Derek [facility] - CHEMISTRY ORDERABLES F inal Result [facility] [address] documented in this encounter Visit Diagnoses Not on filedocumented in this encounter
--- OUTSIDE RECORDS SUMMARY | 2025-03-05 16:06 | XMS_ITS | Clinical Summary ---
Author Organization [facility] [address] Address [facility] [place] [address] Care Team Providers Care Cork Floor Installer Name Role Phone Ji Grande NP Primary Care Provider [phone] Allergies No known active allergies Medications famotidine [...] 12/23/2021 Assessment & Plan (12/23/2021 8:36 PM ORNAMENTER HAND): Eaton diet. Eat 6 small meals. Drink green, brown tea, WAYLON AIDE,White soda, room temperature, , wtaer, some Pedilyte for adults. No grease, milk, spice. Etc. Pepcid AC 20mg one daily. Keflex 500mg one tid for 10 days. Gastroesophageal reflux disease without esophagi tis 12/23/2021 Assessment & Plan (12/23/2021 8:53 PM ORNAMENTER HAND): Continue with bland diet No alcohol, or citric foods.,other carbonated be.verages BRAT diet could also be helpful. If not improving Will refer to specialist. Acute gastritis without hemorrhage 12/23/2021 Assessment & Plan (12/23/2021 9:12 PM ORNAMENTER HAND): Continue with the plan of care. Not [...] on file Legal Sex Male 12:54 PM ORNAMENTER HAND Gender Identity Not on file Sexual Orientation [...] Relation to Subscriber:Self Name:Ti Guardado Payer ID:[id number] ([facility]) Type:HEALTHCARE/EXCHANGE Address: [place] [phone] Care Teams Cork Floor Installer Relationship Specialty Start Date End Date Ji Grande NP [address] [facility] [address] [place] [address] PCP - General Nurse Practitioner 12/22/21
--- OUTSIDE RECORDS SUMMARY | 2025-03-05 16:06 | XMS_ITS | Clinical Summary ---
Author Organization [facility] Address [address] [place] [address] Care Team Providers Care Marketing Assistant Name Role Phone Unavailable Primary Care Provider [...] 7:45 AM CDT Height 175.3 cm (5' 9) 04/13/2020 7:45 AM CDT Body Mass Index [...]
--- OUTSIDE RECORDS SUMMARY | 2025-03-05 16:06 | XMS_ITS | Continuity of Care Document ---
Author Organization [facility] Address [address] [place] [address] Phone Care Team Providers Care Hris Analyst Name Role Phone CONV, [facility] Unavailable Unavailable Advance Directives Directive Yes / No Effective Date File Name No Information Encounters Encounter Description Practice Location Reason(s) For Visit Diagnoses Date Provider Providers Copied on Encounter [facility] /[facility], [address] [place] [address], [facility], tel:[phone] Z [facility] CONV No Information CONV [facility]. [address] [place] [address], [facility], . Family History Family Member Type Diagnosis [...] Record Payers Payer name Insurance type Covered libertarian ID Authoriza tion(s) No Information Social History [...]
--- OUTSIDE RECORDS SUMMARY | 2025-03-05 16:06 | XMS_ITS | Clinical Summary ---
Author Organization [facility] Address [address] [place] [address] Care Team Providers Care Mammography Tech Name Role Phone Unavailable Primary Care Provider Unavailabl e Source Comments [facility],non-owned Affiliates and Associated Physician Practices is amultiple site organization consisting of ambulatory clinics and hospital sitesin [place], [place], [place] and [place]. This disclosure is being madepursuant to the Care Everywhere program and may not contain all information available regarding this patient. Last updated 18.[facility] [employer] Social History Tobacco Use Types Packs/Day Years [...] HEPATITIS C ANTIBODY Routine 08/22/2020 10:50 AM CIRCUS LABORER HIV-1 HIV-2 ANTIBODY + HIV P24 AG PANEL Routine 08/22/2020 10:50 AM CIRCUS LABORER from Last 3 Months or Most Recently Relevant to Health Maintenance Results * HIV-1 HIV-2 ANTIBODY + HIV P24 AG PANEL (08/22/2020 10:50 AM CIRCUS LABORER) HIV1/2 Ab + P24 Ag Negative Negative 08/22/2020 10:11 PM CIRCUS LABORER [facility] Blood BLOOD SPECIMEN / Unknown Venipuncture / Unknown 08/22/2020 10:50 AM CIRCUS LABORER 08/22/2020 9:14 PM CIRCUS LABORER Derek [facility] - CHEMISTRY ORDERABLES F inal Result [facility] [address] * HEPATITIS C ANTIBODY (08/22/2020 10:50 AM CIRCUS LABORER) HCV Antibody Screen Negative Negative 08/22/2020 10:18 PM CIRCUS LABORER [facility] Hepatitis C Virus Index 0.10 0.00 - 0.99 08/22/2020 10:18 PM CIRCUS LABORER [facility] Blood BLOOD SPECIMEN / Unknown Venipuncture / Unknown 08/22/2020 10:50 AM CIRCUS LABORER 08/22/2020 9:14 PM CIRCUS LABORER Derek [facility] - CHEMISTRY ORDERABLES F inal Result [facility] [address] from Last 3 Months or Most Recently Relevant to Health Maintenance
--- NOTE | 2025-03-05 17:16 | ED_ITS ---
HPI - Skin/Abscess/Foreign Bdy General Chief complaint: Skin/Abscess/Foreign Body Stated complaint: suture removal neded History of Present Illness HPI narrative: Patient is a 29-year-old male who presents to the ER for suture removal. He reports he had 1 stitch placed in his right forearm 1 week ago. Patient denies any purulence drainage, recent fevers, decreased range of motion in his wrist or elbow, or swelling at the site. He denies any pain at the time of examination. Related Data Allergies Allergy/AdvReac Type Severity Reaction Status Date / Time No Known Allergies Allergy Verified 02/26/25 15:53 Review of Systems Review of Systems: All systems reviewed & are unremarkable except as noted in HPI and below Exam Narrative: GENERAL: Well appearing, well-nourished, non-toxic, in no acute distress. RESPIRATORY: Airway patent, respirations nonlabored. MUSCULOSKELETAL: Moves all extremities. Strength/ROM intact without gross deformities. SKIN: Warm, dry, normal color. No rashes. Healed laceration on pt's R forearm with one visible stitch. NEURO: A&O X3. Speech clear. Course Vital Signs Vital signs: Vital Signs Temperature 36.6 C 03/05/25 16:06 Pulse Rate 83 03/05/25 16:06 Respiratory Rate 20 03/05/25 16:06 Blood Pressure 138/89 03/05/25 16:06 Pulse Oximetry 100 03/05/25 16:06 Oxygen Delivery Room Air 03/05/25 16:06 Temperature 36.6 C 03/05/25 16:06 Pulse Rate 83 03/05/25 16:06 Respiratory Rate 20 03/05/25 16:06 Blood Pressure 138/89 03/05/25 16:06 Pulse Oximetry 100 03/05/25 16:06 Oxygen Delivery Room Air 03/05/25 16:06 MDM - Skin/Abscess/Foreign Bdy MDM Narrative Medical decision making narrative: Patient is a 29-year-old male who presents to the ER for suture removal. He reports he had 1 stitch placed in his right forearm 1 week ago. Patient denies any purulence drainage, recent fevers, decreased range of motion in his wrist or elbow, or swelling at the site. He denies any pain at the time of examination. Patient's suture was removed with the suture removal kit. There were no signs of purulence drainage, bleeding, or your taken to the area. Patient was advised to keep the site clean and covered with a Band-Aid. He should let water and soap run over the site instead of scrubbing it for the next few days. Patient verbalized understanding and is in agreement with plan. Stri ct return precautions advised. All questions answered. Differential Diagnosis Differential diagnosis: Likely urticaria and other (Suture removal, hematoma, infected incision) Discharge Plan Discharge Clinical Impression: Encounter for removal of sutures Patient Disposition: Home Condition: Stable Instructions: Antibiotic Form, Stitches Removal (ED) Additional Instructions: Please keep the site clean and covered with a Band-Aid. You may let water and soap run over the site. Please try not to itch the site. Return to the ER with any worsening symptoms. Follow-up with your primary care provider as needed. Patient Language: Tristanian Prescriptions: No Action amoxicillin-pot clavulanate 875-125 mg tablet 1 tablet PO Q12H 7 Days Qty: 14 0RF Follow-up/Referrals: UNKNOWN,DOCTOR [Primary Care Provider] - Stand Alone Forms: Work/School Release IP Time of Disposition: 17:23
--- OUTSIDE RECORDS SUMMARY | 2025-03-05 17:32 | XMS_ITS | Encounter Summary ---
Author Organization [facility] Address [address] [place] [address] Care Team Providers Care Database Administration Project Manager Name Role Phone Unavailable Primary Care Provider Unavailabl e Encounter Details Date Type Department Care Team (Late st Contact Info) Description 08/22/2020 Lab Requisition [facility] - Laboratory [address] [place] [address] Derek Dwyer PA [address] [facility] [address] [place] [address] Social History Tobacco Use Types Packs/Day Years [...] COVID-19? No / Unsure 08/22/2020 1:18 PM MOLD BUNCH TRIMMER documented as of this encounter Plan of Treatment Not on file documented as of this encounter Procedures Procedure Name Priority Date/Time Associated Diagnosis Comments OCCUPATIONAL PROFILE W/REFLEX DBILI Routine 08/22/2020 10:50 AM MOLD BUNCH TRIMMER URINALYSIS W/MICROSCOPIC NO CULTURE Routine 08/22/2020 10:50 AM MOLD BUNCH TRIMMER SYPHILIS ANTIBODY CASCADING REFLEX Routine 08/22/2020 10:50 AM MOLD BUNCH TRIMMER HIV-1 HIV-2 ANTIBODY + HIV P24 AG PANEL Routine 08/22/2020 10:50 AM MOLD BUNCH TRIMMER RPR Routine 08/22/2020 10:50 AM MOLD BUNCH TRIMMER CBC W AUTO DIFFERENTIAL Routine 08/22/2020 10:50 AM MOLD BUNCH TRIMMER HEPATITIS B CORE ANTIBODY TOTAL Routine 08/22/2020 10:50 AM MOLD BUNCH TRIMMER HEPATITIS B SURFACE ANTIGEN W RFLX CONFIRMATION Routine 08/22/2020 10:50 AM MOLD BUNCH TRIMMER BILIRUBIN DIRECT Routine 08/22/2020 10:5 0 AM MOLD BUNCH TRIMMER HEPATITIS C ANTIBODY Routine 08/22/2020 10:50 AM MOLD BUNCH TRIMMER LIPID PROFILE Routine 08/22/2020 10:50 AM MOLD BUNCH TRIMMER documented in this encounter Results * (ABNORMAL) BILIRUBIN DIRECT (08/22/2020 10:50 AM MOLD BUNCH TRIMMER) Pathologist [facility] Bilirubin Direct 0.8(H) 0.0 - 0.5 mg/dL 08/22/2020 10:21 PM MOLD BUNCH TRIMMER [facility] Blood BLOOD SPECIMEN / Unknown Venipuncture / Unknown 08/22/2020 10:50 AM MOLD BUNCH TRIMMER 08/22/2020 9:14 PM MOLD BUNCH TRIMMER [facility] - CHEMISTRY ORDERABLES F inal Result [facility] [address] * (ABNORMAL) URINALYSIS W/MICROSCOPIC NO CULTURE (08/22/2020 10:50 AM MOLD BUNCH TRIMMER) Color UA Straw Straw, Yellow, Light Yellow, Dark Yellow 08/22/2020 9:39 PM MOLD BUNCH TRIMMER [facility] Clarity UA Clear Clear 08/22/2020 9:39 PM MOLD BUNCH TRIMMER [facility] Specific [place] UA 1.012 1.001 - 1.034 08/22/2020 9:39 PM MOLD BUNCH TRIMMER [facility] pH UA 7.0 5.0 - 8.5 pH 08/22/2020 9:39 PM MOLD BUNCH TRIMMER [facility] Glucose UA Negative Negative 08/22/2020 9:39 PM MOLD BUNCH TRIMMER [facility] Ketone UA Negative Negative 08/22/2020 9:39 PM [facility] Blood UA Negative Negative 08/22/2020 9:39 PM [facility] Bilirubin UA Negative Negative 08/22/2020 9:39 PM [facility] Protein UA Negative Negative 08/22/2020 9:39 PM MOLD BUNCH TRIMMER [facility] Leukocyte UA Negative Negative 08/22/2020 9:39 PM [facility] Nitrite UA Negative Negative 08/22/2020 9:39 PM [facility] Urobilinogen UA Negative Negative 0 9:39 PM [facility] RBC UA None None, 0-2 # /hpf 08/22/2020 9:39 PM [facility] WBC UA None None, 0-2 # /hpf 08/22/2020 9:39 PM [facility] Bacteria UA None None, Occasional 08/22/2020 9:39 PM [facility] Squamous Epithelial Cells None None, Occasional #/hpf 08/22/2020 9:39 PM [facility] Mucus UA Present(A) Absent 08/22/2020 9:39 PM [facility] Hyaline Casts None None, 0-1 # /lpf 08/22/2020 9:39 PM [facility] Granular Casts None 0-1, None # /lpf 08/22/2020 9:39 PM [facility] Urine URINE SPECIMEN OBTAINED BY CLEAN CATCH PROCEDURE / Unknown Collection / Unknown 08/22/2020 10:50 AM MOLD BUNCH TRIMMER 08/22/2020 9:13 PM MOLD BUNCH TRIMMER Derek [facility] - URINALYSIS ORDERABLES Final Result [facility] [address] * HIV-1 HIV-2 ANTIBODY + HIV P24 AG PANEL (08/22/2020 10:50 AM MOLD BUNCH TRIMMER) HIV1/2 Ab + P24 Ag Negative Negative 08/22/2020 10:11 PM [facility] Blood BLOOD SPECIMEN / Unknown Venipuncture / Unknown 08/22/2020 10:50 AM MOLD BUNCH TRIMMER 08/22/2020 9:14 PM MOLD BUNCH TRIMMER Derek [facility] - CHEMISTRY ORDERABLES F inal Result Performing Organization Address City/[facility]/ZIP Co de Phone Number [facility] [address] * HEPATITIS C ANTIBODY (08/22/2020 10:50 AM MOLD BUNCH TRIMMER) HCV Antibody Screen Negative Negative 08/22/2020 10:18 PM MOLD BUNCH TRIMMER [facility] Hepatitis C Virus Index 0.10 0.00 - 0.99 08/22/2020 10:18 PM MOLD BUNCH TRIMMER [facility] Blood BLOOD SPECIMEN / Unknown Venipuncture / Unknown 08/22/2020 10:50 AM MOLD BUNCH TRIMMER 08/22/2020 9:14 PM MOLD BUNCH TRIMMER Derek [facility] - CHEMISTRY ORDERABLES F inal Result Performing Organization Address [facility] Co de Phone Number [facility] [address] * HEPATITIS B SURFACE ANTIGEN W RFLX CONFIRMATION (08/22/2020 10:50 AM MOLD BUNCH TRIMMER) HBsAg Negative Negative 08/22/2020 10:15 PM MOLD BUNCH TRIMMER [facility] Blood BLOOD SPECIMEN / Unknown Venipuncture / Unknown 08/22/2020 10:50 AM MOLD BUNCH TRIMMER 08/22/2020 9:14 PM MOLD BUNCH TRIMMER Derek [facility] - CHEMISTRY ORDERABLES F inal Result Performing Organization Address City/[facility]/ZIP Co de Phone Number [facility] [address] * HEPATITIS B CORE ANTIBODY (08/22/2020 10:50 AM MOLD BUNCH TRIMMER) Hepatitis B Core Virus Antibody Total Negative Negative 08/24/2020 8:56 PM MOLD BUNCH TRIMMER [employer] ([facility]) Comment: INTERPRETIVE INFORMATION: Hepatitis B Core Ab (Total) This assay should not be used for blood donor screening, associated re-entry protocols, or for screening Human Cells, Tissues and Cellular and Tissue-Based Products (HCT/P). Performed by [employer], [address] [place] [id number] [email or web address], Symone Myers MD, Lab. Director Blood BLOOD SPECIMEN / Unknown Venipuncture / Unknown 08/22/2020 10:50 AM MOLD BUNCH TRIMMER 08/22/2020 9:14 PM MOLD BUNCH TRIMMER [facility] - CHEMISTRY ORDERABLES F inal Result [facility] ([facility]) [address] * LIPID PROFILE (08/22/2020 10:50 AM [facility]) Appearance Serum Clear Clear 08/22/20 20 10:02 PM [facility] Cholesterol 174 <200 mg/dL 08/22/2020 10:02 PM [facility] Triglycerides 77 <=150 mg/dL 08/22/2020 10:02 PM [facility] Comment:N-acetylcysteine adm inistration may falsely depress Triglyceride results and also affect calculations derived from that parameter. HDL Cholesterol 66 >=40 mg/dL 08/22/2020 10:02 PM [facility] Comment:N-acetylcysteine adm inistration may falsely depress HDL results and also affect calculations derived from that parameter. HDL % 37.9 % 08/22/2020 10:02 PM [facility] Chol HDL Ratio 2.6 08/22/2020 10:02 PM [facility] LDL/HDL Ratio 1.4 08/22/2020 10:02 PM [facility] VLDL Calculated 15 6 - 34 mg/dL 08/22/2020 10:02 PM [facility] LDL Calculated 93 70 - 130 mg/dL 08/22/2020 10:02 PM [facility] Blood BLOOD SPECIMEN / Unknown Venipuncture / Unknown 08/22/2020 10:50 AM MOLD BUNCH TRIMMER 08/22/2020 9:14 PM [facility] Narrative [facility] - 08/22/2020 10:02 PM [facility] Lipid Profile Comment: NATIONAL CHOLESTEROL EDUCATION PROGRAM [...] LAB - CHEMISTRY ORDERABLES F inal Result [facility] [address] * (ABNORMAL) OCCUPATIONAL PROFILE W/REFLEX DBILI (08/22/2020 10:50 AM MOLD BUNCH TRIMMER) Protein Total 7.9 6.0 - 8.3 gm/dL 08/22/2020 10:04 PM [facility] Albumin 4.9 3.4 - 5.0 gm/dL 08/22/2020 10:04 PM [facility] Calcium 9.8 8.4 - 10.4 mg/dL 08/22/2020 10:04 PM [facility] Phosphorus 3.0 2.3 - 4.7 mg/dL 08/22/2020 10:04 PM [facility] Glucose 80 65 - 99 mg/dL 08/22/2020 10:04 PM [facility] Bilirubin Total 2.4(H) 0.2 - 1.2 mg/dL 08/22/2020 10:04 PM [facility] Alkaline Phosphatase 60 40 - 150 U/L 08/22/2020 10:04 PM [facility] LDH 209 125 - 220 U/L 08/22/2020 10:04 PM [facility] AST 29 5 - 34 U/L 08/22/2020 10:04 PM [facility] ALT 31 0 - 55 U/L 08/22/2020 10:04 PM [facility] BUN 12 7 - 18 mg/dL 08/22/2020 10:04 PM [facility] Creatinine 0.91 0.72 - 1.25 mg/dL 08/22/2020 10:04 PM [facility] BUN/Creatinine Ratio 13.2 7.0 - 25.0 08/22/2020 10:04 PM [facility] Uric Acid 4.9 3.5 - 7.2 mg/dL 08/22/2020 10:04 PM [facility] Comment:U-fljzup-6-benzoquin one imine (NAPQI), a metabolite of acetaminophen, at very high levels may lead to falsely low results. S-yuqpuo-X-cysteine at therapeutically achieved concentrations may lead to falsely low results. Sodium 140 136 - 145 mmol/L 08/22/2020 10:04 PM [facility] Potassium 4.6 3.5 - 5.1 mmol/L 08/22/2020 10:04 PM [facility] Chloride 102 98 - 107 mmol/L 08/22/2020 10:04 PM [facility] CO2 25 22 - 29 mmol/L 08/22/2020 10:04 PM [facility] GGT 24 12 - 64 U/L 08/22/2020 10:04 PM [facility] Calcium Adjusted 9.08 8.4 - 10.4 mg/dL 08/22/2020 10:04 PM [facility] eGFR by MDRD >60 >60 mL/min/1. 73m2 08/22/2020 10:04 PM [facility] eGFR by MDRD >60 >60 mL/min/1. 73m2 08/22/2020 10:04 PM [facility] Blood BLOOD SPECIMEN / Unknown Venipuncture / Unknown 08/22/2020 10:50 AM MOLD BUNCH TRIMMER 08/22/2020 9:14 PM [facility] Derek [facility] - CHEMISTRY ORDERABLES F inal Result [facility] [address] * (ABNORMAL) CBC WITH DIFFERENTIAL (08/22/2020 10:50 AM [facility]) [facility] WBC 6.8 3.7 - 11.6 x10E9/L 08/22/2020 9:26 PM [facility] RBC 5.53 4.20 - 5.70 x10E12/L 08/22/2020 9:26 PM [facility] Hemoglobin 16.7 13.0 - 17.1 gm/dL 08/22/2020 9:26 PM [facility] Hematocrit 49.4(H) 38.0 - 48.0 % 08/22/2020 9:26 PM [facility] MCV 89.3 80.0 - 96.0 fl 08/22/2020 9:26 PM [facility] MCH 30.2 28.0 - 34.0 pg 08/22/2020 9:26 PM [facility] MCHC 33.8 33.0 - 37.0 gm/dL 08/22/2020 9:26 PM [facility] RDW 12.5 11.3 - 14.8 % 08/22/2020 9:26 PM [facility] Platelet Count 359 150 - 440 x10E9/L 08/22/2020 9:26 PM [facility] MPV 10.8 9.3 - 12.2 fl 08/22/2020 9:26 PM [facility] Neutrophils % 63.4 41.0 - 79.0 % 08/22/2020 9:26 PM [facility] Lymphocytes % 26.7 13.0 - 47.0 % 08/22/2020 9:26 PM [facility] Monocytes % 7.6 0.0 - 10.0 % 08/22/2020 9:26 PM [facility] Eosinophils % 1.3 0.0 - 7.0 % 08/22/2020 9:26 PM [facility] Basophils % 0.6 0.0 - 1.0 % 08/22/2020 9:26 PM [facility] Neutrophil Absolute 4.31 1.8 - 7.7 x10E9/L 08/22/2020 9:26 PM [facility] Lymphocytes Absolute 1.82 1.0 - 4.8 x10E9/L 08/22/2020 9:26 PM [facility] Monocytes Absolute 0.52 0.0 - 0.8 x10E9/L 08/22/2020 9:26 PM [facility] Eosinophils Absolute 0.09 0.0 - 0.5 x10E9/L 08/22/2020 9:26 PM [facility] Basophils Absolute 0.04 0.0 - 0.2 x10E9/L 08/22/2020 9:26 PM [facility] Blood BLOOD SPECIMEN / Unknown Venipuncture / Unknown 08/22/2020 10:50 AM MOLD BUNCH TRIMMER 08/22/2020 9:14 PM [facility] Derek [facility] - HEMATOLOGY ORDERABLES Final Result [facility] [address] * RPR (08/22/2020 10:50 AM MOLD BUNCH TRIMMER) RPR Nonreactive Nonreactive 08/23/2020 7:12 AM MOLD BUNCH TRIMMER [facility] Blood BLOOD SPECIMEN / Unknown Venipuncture / Unknown 08/22/2020 10:50 AM MOLD BUNCH TRIMMER 08/22/2020 9:14 PM MOLD BUNCH TRIMMER Derek [facility] - CHEMISTRY ORDERABLES F inal Result [facility] [address] documented in this encounter Visit Diagnoses Not on filedocumented in this encounter
--- OUTSIDE RECORDS SUMMARY | 2025-03-05 17:32 | XMS_ITS | Continuity of Care Document ---
Author Organization [facility] Address [address] [place] [address] Phone Care Team Providers Care Veneer Press Operator Name Role Phone CONV, [facility] Unavailable Unavailable Advance Directives Directive Yes / No Effective Date File Name No Information Encounters Encounter Description Practice Location Reason(s) For Visit Diagnoses Date Provider Providers Copied on Encounter [facility], [address] [place] [address], [facility], tel:[phone] Z [facility] CONV No Information CONV [facility]. [address] [place] [address], [facility], . Family History Family Member Type Diagnosis [...]
--- OUTSIDE RECORDS SUMMARY | 2025-03-05 17:32 | XMS_ITS | Referral Summary ---
Author Organization [facility] [address] Address [facility] [place] [address] Care Team Providers Care Light Equipment Operator Name Role Phone Ji Grande NP Primary Care Provider [phone] Allergies No known active allergies Medications famotidine [...] 12/23/2021 Assessment & Plan (12/23/2021 8:36 PM PET FOOD DEBONER): [place] diet. Eat 6 small meals. Drink green, brown tea, WAYLON AIDE,White soda, room temperature, , wtaer, some Pedilyte for adults. No grease, milk, spice. Etc. Pepcid AC 20mg one daily. Keflex 500mg one tid for 10 days. Gastroesophageal reflux disease without esophagi tis 12/23/2021 Assessment & Plan (12/23/2021 8:53 PM PET FOOD DEBONER): Continue with bland diet No alcohol, or citric foods.,other carbonated be.verages BRAT diet could also be helpful. If not improving Will refer to specialist. Acute gastritis without hemorrhage 12/23/2021 Assessment & Plan (12/23/2021 9:12 PM PET FOOD DEBONER): Continue with the plan of care. Not [...] on file Legal Sex Male 12:54 PM PET FOOD DEBONER Gender Identity Not on file Sexual Orientation [...] BL CHOICE PRF [place] Care Teams Light Equipment Operator Relationship Specialty Start Date End Date Ji Grande NP [facility] [address] [place] [address] PCP - General Nurse Practitioner 12/22/21
--- OUTSIDE RECORDS SUMMARY | 2025-03-05 17:32 | XMS_ITS | Clinical Summary ---
Author Organization [facility] [employer] [place] Address [address] [place] [address] Care Team Providers Care Assistant Professor Of German Name Role Phone Unavailable Primary Care Provider [...]
--- OUTSIDE RECORDS SUMMARY | 2025-03-05 17:32 | XMS_ITS | Clinical Summary ---
Author Organization [facility] [address] Address [facility] [place] [address] Care Team Providers Care Fabrication Department Supervisor Name Role Phone Ji Grande NP Primary Care Provider [phone] Allergies No known active allergies Medications famotidine [...] 12/23/2021 Assessment & Plan (12/23/2021 8:36 PM SPECIAL FORCES MEDICAL SERGEANT): [place] diet. Eat 6 small meals. Drink green, brown tea, WAYLON AIDE,White soda, room temperature, , wtaer, some Pedilyte for adults. No grease, milk, spice. Etc. Pepcid AC 20mg one daily. Keflex 500mg one tid for 10 days. Gastroesophageal reflux disease without esophagi tis 12/23/2021 Assessment & Plan (12/23/2021 8:53 PM [employer] MEDICAL SERGEANT): Continue with bland diet No alcohol, or citric foods.,other carbonated be.verages BRAT diet could also be helpful. If not improving Will refer to specialist. Acute gastritis without hemorrhage 12/23/2021 Assessment & Plan (12/23/2021 9:12 PM [employer] MEDICAL SERGEANT): Continue with the plan of care. Not [...] on file Legal Sex Male 12:54 PM SPECIAL [employer] MEDICAL SERGEANT Gender Identity Not on file Sexual Orientation [...] Relation to Subscriber:Self Name:Ti Guardado Payer ID:[id number] ([facility]) Type:HEALTHCARE/EXCHANGE Address: [place] [phone] Care Teams Fabrication Department Supervisor Relationship Specialty Start Date End Date Ji Grande NP [address] [facility] [address] [place] [address] PCP - General Nurse Practitioner 12/22/21
--- OUTSIDE RECORDS SUMMARY | 2025-03-05 17:32 | XMS_ITS | Clinical Summary ---
Author Organization [facility] Address [address] [place] [address] Care Team Providers Care Pyrotechnician Name Role Phone Unavailable Primary Care Provider Unavailabl e Source Comments [facility],non-owned Affiliates and Associated Physician Practices is amultiple site organization consisting of ambulatory clinics and hospital sitesin [place], [place], [place] and [place]. This disclosure is being madepursuant to the Care Everywhere program and may not contain all information available regarding this patient. Last updated 18.[facility] Workfolio Social History Tobacco Use Types Packs/Day Years [...] HEPATITIS C ANTIBODY Routine 08/22/2020 10:50 AM ELECTROMECHANICAL ENGINEER HIV-1 HIV-2 ANTIBODY + HIV P24 AG PANEL Routine 08/22/2020 10:50 AM ELECTROMECHANICAL ENGINEER from Last 3 Months or Most Recently Relevant to Health Maintenance Results * HIV-1 HIV-2 ANTIBODY + HIV P24 AG PANEL (08/22/2020 10:50 AM ELECTROMECHANICAL ENGINEER) HIV1/2 Ab + P24 Ag Negative Negative 08/22/2020 10:11 PM ELECTROMECHANICAL ENGINEER [facility] Blood BLOOD SPECIMEN / Unknown Venipuncture / Unknown 08/22/2020 10:50 AM ELECTROMECHANICAL ENGINEER 08/22/2020 9:14 PM ELECTROMECHANICAL ENGINEER [facility] - CHEMISTRY ORDERABLES F inal Result [facility] [address] * HEPATITIS C ANTIBODY (08/22/2020 10:50 AM ELECTROMECHANICAL ENGINEER) HCV Antibody Screen Negative Negative 08/22/2020 10:18 PM ELECTROMECHANICAL ENGINEER [facility] Hepatitis C Virus Index 0.10 0.00 - 0.99 08/22/2020 10:18 PM ELECTROMECHANICAL ENGINEER [facility] Blood BLOOD SPECIMEN / Unknown Venipuncture / Unknown 08/22/2020 10:50 AM ELECTROMECHANICAL ENGINEER 08/22/2020 9:14 PM ELECTROMECHANICAL ENGINEER [facility] - CHEMISTRY ORDERABLES F inal Result [facility] [address] from Last 3 Months or Most Recently Relevant to Health Maintenance
== END 2025-03-05 17:32 | disposition home or self-care (01) ==
LOC: ANHED 17:31
PROVIDERS: Emergency Provider Registered Nurse
DX: Z48.02 Encounter for removal of sutures (principal)
CPT/HCPCS: 15853; 99282

== ENCOUNTER 2025-08-30 11:48 | Outpatient (CLI) | payer BC, SELFPAY ==
--- NOTE | 2025-08-30 12:07 | ECG_ITS ---
Test Date: 2025-08-30 12:14:59 Measurements Intervals Terrell Rate: 74 P: 29 NM: 142 QRS: 83 QRSD: 89 T: 41 QT: 368 QTc: 408 Interpretive Statements SINUS RHYTHM No previous ECG available for comparison Electronically Signed On 08-30-2025 12:48:43 A R SPECIALIST by Aquiles Caruso M.D.
[2025-08-30 12:13] LABS: Hematocrit 48.4 % (40.0-54.0); Hemoglobin 16.4 g/dL (14.0-18.0); Immature Granulocyte Percent A 0.3 % (0.0-0.0); Lymphocytes Absolute Auto 1.99 K/mm3 (1.10-4.50); Mean Corpuscular HGB Conc 33.9 g/dL (32-36); Mean Corpuscular Hemoglobin 29.3 pg (27.0-31.0); Mean Corpuscular Volume 86.4 fL (78.0-102.0); Nucleated Red Blood Cells Absolute Auto 0.00 K/mm3 (0.00-0.00); Nucleated Red Blood Cells Perc 0.0 % (0-0.0); Platelet Count Result 336 K/mm3 (150-420); Red Blood Count 5.60 M/mm3 (4.70-6.10); White Blood Count 9.1 K/mm3 (4.8-10.8)
[2025-08-30 14:58] LABS: Alanine Aminotransferase 34 U/L (6-50); Albumin Level 5.1 g/dL (3.5-5.1); Alkaline Phosphatase 51 U/L (38-126); Anion Gap 11 mmol/L (4-12); Aspartate Amino Transferase 36 U/L (17-59); Blood Urea Nitrogen 14 mg/dL (9-20); Calcium 10.0 mg/dL (8.4-10.2); Carbon Dioxide 27 mmol/L (22-30); Chloride 104 mmol/L (98-107); Cholesterol 201 mg/dL (0-200); Estimated Glomerular Filt Rate > 60; Glucose 98 mg/dL (65-110); HDL Direct 89 mg/dL; Osmolality Calculated 294 mOsm/kg (285-295); Potassium 4.5 mmol/L (3.4-5.0); Sodium 142 mmol/L (137-145); Total Protein 8.0 g/dL (6.3-8.2); Triglycerides 83 mg/dL (<150)
[2025-08-30 17:35] LABS: Bilirubin,Total 1.7 mg/dL (0.2-1.3)
== END 2025-08-30 11:49 | disposition home or self-care (01) ==
LOC: CHSLAB 11:49
PROVIDERS: PCP Nurse Practitioner Family; Visit Provider Nurse Practitioner Family
DX: I10 Essential (primary) hypertension (principal); Z13.6 Encounter for screening for cardiovascular disorders; M89.8X1 Other specified disorders of bone, shoulder
CPT/HCPCS: 36415; 80053; 80061; 85025; 85652; 93005